=== PATIENT | male | born 1960 | race Caucasian/White ===

== ENCOUNTER → 2021-03-28 | Outpatient (CLI) | payer BC ==
[~2021-03-28] MED LIST: EXTRA STRENGTH500 MG PO; IBUP400 PO
== END ==
LOC: LAB 10:39 → LAB SHORT 10:39
DX: D48.5 Neoplasm of uncertain behavior of skin (principal); D29.4 Benign neoplasm of scrotum
CPT/HCPCS: 88305

== ENCOUNTER 2023-12-11 06:59 | Day surgery (SDC) | payer OTHER ==
[~2023-12-11] VITALS: Ht 182.9 cm; Wt 102.4 kg
[2023-12-11] MEDS ORDERED: propofoL 50 ML IV ONE (07:34)
[2023-12-11] MEDS ORDERED: Lactated Ringer's 1,000 ML IV ONE (07:34)
[2023-12-11 07:50] VITALS: BP 133/67
--- NOTE | 2023-12-11 08:46 | NUR ---
12/11/23 0846 Ashley Santa LATE ENTRY FOR TODAY AT 0750 PT ARRIVED AND STATED THAT HE THREW UP THE MORNING BOTTLE OF SUTAB, STATES THAT HIS BM IS STILL BROWN. PT GIVEN AN ENEMA AND RESULTS WERE DARK BROWN LIQUID. DR. MERA CONTACTED AND ARRIVED SPOKE WITH PT. DECIDED THAT THEY WOULD CANCEL THE CASE BUT INSTRUCTED TO KEEP THE PATIENT ON CLEAR LIQUIDS UNTIL PT HEARS FROM DR. TENORIO OFFICE. NO IV STARTED. PT DISCHARGED HOME WITH PERSONAL BELONGINGS AND INSTRUCTIONS TO STARY ON CLEAR LIQUIDS. PT VERBALIZES UNDERSTANDING.
[2023-12-12] MEDS ORDERED: Amaryl1 MG PO (08:34)
[2023-12-12] MEDS ORDERED: LISI20 PO (08:34)
[2023-12-12] MEDS ORDERED: DULO30 PO (08:34)
[2023-12-12] MEDS ORDERED: METF500 PO (08:34)
[2023-12-12] MEDS ORDERED: Testosterone5 GM MC (08:35)
[2023-12-12] MEDS ORDERED: TAMS.4ER PO (08:35)
== END 2023-12-11 08:06 | disposition home or self-care (01) ==
LOC: ORSCSDS 06:59
DX: Z12.11 Encounter for screening for malignant neoplasm of colon (principal); Z53.9 Procedure and treatment not carried out, unspecified reason
CPT/HCPCS: J2704; J7120

== ENCOUNTER 2023-12-12 08:02 | Day surgery (SDC) | payer OTHER ==
[2023-12-12] VITALS (23 sets, daily range): BP systolic 110–151; BP diastolic 50–87
[~2023-12-12] VITALS: Ht 179 cm; Wt 101.7 kg
[~2023-12-12 08:02] MED LIST changes: +Lactated Ringer's 1,000 ML IV SCH
[2023-12-12] MEDS ORDERED: Amaryl1 MG PO (08:34)
[2023-12-12] MEDS ORDERED: LISI20 PO (08:34)
[2023-12-12] MEDS ORDERED: DULO30 PO (08:34)
[2023-12-12] MEDS ORDERED: METF500 PO (08:34)
[2023-12-12] MEDS ORDERED: TAMS.4ER PO (08:35)
[2023-12-12] MEDS ORDERED: Testosterone5 GM MC (08:35)
--- NOTE | 2023-12-12 09:03 | NUR ---
History, Chart, Medications and Allergies reviewed before start of procedure. Pre-Op teaching done. Pt verbalizes understanding. Patient States Post-Procedure ride home has been arranged WITH . Ambulatory in [facility] WITH [facility]. AT BEDSIDE.
[2023-12-12] MEDS ORDERED: propofoL 40 ML IV ONE (09:15)
[2023-12-12] MEDS ORDERED: Ondansetron HCl 2 MG / ML 2ML Vial ONE (09:15)
--- NOTE | 2023-12-12 09:32 | NUR ---
12/12/23 0932 Afshan Moe HISTORY, CHART, MEDICATIONS AND ALLERGIES REVIEWED BEFORE START OF PROCEDURE. PATIENT CONFIRMS NPO STATUS AND AGREES WITH SCHEDULED PROCEDURE. 3-LEAD EKG REVIEWED WITH PHYSICIAN PRIOR TO START OF PROCEDURE. MONITOR INTACT WITH CONTINUOUS PULSE OXIMETRY,CAPNOGRAPHY, 3-LEAD EKG, INTERMITTENT BP. SUPPLEMENTAL O2 TO BE TITRATED THROUGHOUT PROCEDURE TO MAINTAIN O2 SATURATION ABOVE 90%. PATIENT DETERMINED TO BE ASA APPROPRIATE FOR PROPOFOL SEDATION PRIOR TO START OF PROCEDURE BY DR. MERA.
--- NOTE | 2023-12-12 10:34 | NUR ---
DISCHARGE NOTE PT A&OX4, BREATHING RA, NO COMPLAINTS, TOLERATING PO FLUIDS, ABDOMEN SOFT AND NON TENDER, PT DRESSING INDEPENDENTLY. Patient up to Ambulate independently. Gait steady. Discharge instructions reviewed with patient. Patient verbalizes understanding. Copy given to patient to take home. Discharged via wheelchair to private car for ride home.
== END 2023-12-12 10:40 | disposition home or self-care (01) ==
LOC: ORSCMMR 08:02
PROVIDERS: Surgery
PROC: 0DBP8ZX Excision of Rectum, Via Natural or Artificial Opening Endoscopic, Diagnostic (ICD-10-PCS; principal; 2023-12-12 07:30)
PROC: 0DBN8ZX Excision of Sigmoid Colon, Via Natural or Artificial Opening Endoscopic, Diagnostic (ICD-10-PCS; principal; 2023-12-12 07:30)
DX: Z12.11 Encounter for screening for malignant neoplasm of colon (principal); K63.5 Polyp of colon; K62.1 Rectal polyp; I10 Essential (primary) hypertension; E11.9 Type 2 diabetes mellitus without complications; K64.8 Other hemorrhoids; Z79.899 Other long term (current) drug therapy
CPT/HCPCS: 82947; 88305; J2405; J2704; J7120